=== PATIENT | female | born 1945 | race Hispanic/Latino ===

== ENCOUNTER → 2019-11-28 | Outpatient (CLI) | payer MEDICARE | END | disposition home or self-care (01) | LOC: RAH 11:17 | PROVIDERS: ATTEND Family Medicine | DX: Z12.31 Encounter for screening mammogram for malignant neoplasm of breast (principal) | CPT/HCPCS: 77067 ==

== ENCOUNTER → 2024-11-06 | Outpatient (CLI) | payer MEDICARE ==
--- NOTE | 2024-11-06 14:25 | HMCIMG ---
DEXA BONE DENSITY SURVEY HISTORY: Menopause COMPARISON: None FINDINGS: Bone densitometry study was performed. Bone mineral density of the lumbar spine is 0.734 gram per centimeter square which corresponds to a T score of -2.8 and a Z score of -0.1. Bone mineral density of the left hip is 0.623 grams per centimeter square which corresponds to a T score of -2.5 and a Z score of -0.4. IMPRESSION: 1. 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
--- NOTE | 2024-11-07 06:54 | HMCSR ---
APPROVED REPORT EXAM: Two-dimensional and M-mode echocardiogram with Doppler and color Doppler. INDICATION ICD: Cardiac murmur, unspecified R01.1 2D Dimensions RVDd3.1 cmLVEF(%)85.5 (>50%)LVED Vol(simp.)67.3 mL IVSd0.8 (0.7-1.1cm)FS(%)55 %LVES Vol(simp.)22.2 mL LVDd4.4 (3.8-5.6cm)LA (2D)4.1 (1.6-4.0cm)LVEF(%, simp.)67 % PWd0.9 (0.7-1.1cm)Ao Root(2D)2.4 (2.0-3.7cm)LA ESV INDEX (4CH)31.20 mL/m2 IVSs1.4 cmLVOT diam1.7 (1.8-2.4cm)LA ESV INDEX (2CH)28.40 mL/m2 LVDs2.0 (2.5-4.0cm)LA ESV INDEX (BP)30.60 mL/m2 PWs1.5 cm M-Mode Dimensions LA (MM)3.8 (1.6-4.0cm) Ao Root(MM)2.3 (2.0-3.7cm) Aortic Valve AoV VTI0.4 mAo Mean GR8.0 mmHgLVOT VTI0.26 m ALAINA (VMAX)1.6 cm2Al P1/2T346 msAVA (VTI) 1.6 cm2 Mitral Valve MR Max PG56 mmHgP 1/2 T86 ms MVA (PHT)2.6 cm2 TDI Medial E' Peak V5.80 cm/sLateral E' Peak V8.20 cm/s Tricuspid Valve TR Vmax2.6 m/s TR Peak GR26.6 mmHg Left Ventricle Left ventricular cavity is small. There is normal LV segmental wall motion. There is normal left vent ricular wall thickness. LVEF is 65-70%. The left ventricular diastolic function is normal. Right Ventricle The right ventricle is normal size. The right ventricular systolic function is normal. Atria The left atrium size is normal. The right atrium size is normal. Aortic Valve The aortic valve is mildly thickened but opens well. Trace to mild aortic regurgitation. There is no aortic valvular stenosis. Mitral Valve The mitral valve is normal in structure and function. Mitral regurgitation is trace. There is no mitr al valve stenosis. Tricuspid Valve The tricuspid valve is normal in structure and function. Mild to moderate tricuspid regurgitation. Pulmonic Valve The pulmonary valve is normal in structure and function. There is no pulmonic valvular regurgitation. Great Vessels The aortic root is normal in size. The IVC is normal in size and collapses >50% with inspiration. Pericardium No pericardial effusion. Conclusion LVEF is 65-70%. There is normal LV segmental wall motion. The aortic valve is mildly thickened but opens well. Trace to mild aortic regurgitation. Mild to moderate tricuspid regurgitation. The aortic root is normal in size. No pericardial effusion.
== END | disposition home or self-care (01) ==
LOC: RAH 12:59
PROVIDERS: ATTEND Family Medicine
DX: I08.2 Rheumatic disorders of both aortic and tricuspid valves (principal); R01.1 Cardiac murmur, unspecified; M81.0 Age-related osteoporosis without current pathological fracture; Z78.0 Asymptomatic menopausal state
CPT/HCPCS: 77080; 93306

== ENCOUNTER 2024-11-20 10:20 | Emergency (ER) | payer MEDICARE ==
[~2024-11-20] VITALS: Ht 154.9 cm; Wt 53.5 kg
[2024-11-20 10:21] VITALS: TEMP 98.4
--- NOTE | 2024-11-20 10:24 | ERN ---
ED Note History of Present Illness Stated Complaint: CHEST TIGHTNESS Chief Complaint: Chest Pain Time Seen by MD: 10:21 Dictation: PATIENT IS AN 79-YEAR-OLD FEMALE HERE WITH HER SON WITH COMPLAINTS OF HAVING CHEST TIGHTNESS ONSET THIS MORNING APPROXIMATE 2 HOURS PRIOR TO ARRIVAL. SHE STATES SHE WAS JUST GETTING DRESSED FOR THE MORNING, NO SOB NO ARM PAIN NO BACK PAIN NO JAW PAIN. SON STATES SHE HAD JUST HAD A TREADMILL TEST BY DR. MCKEON TWO WEEKS AGO AND SHE PASSED IT. NO HISTORY OF CAD HYPERTENSION DIABETES. NO HISTORY OF CORONARY ARTERY DISEASE Allergies: Coded Allergies: No Known Drug Allergies (Unverified Allergy, Unknown, 11/20/24) Past Medical History PSYCH History: no pertinent psych hx History: Not Applicable RN Note Reviewed/Agreed w/PFSH: Yes Review of System Dictation CONSTITUTIONAL: NEGATIVE EXCEPT FOR HPI HEAD/FACE: NEGATIVE EXCEPT FOR HPI EENT: NEGATIVE EXCEPT FOR HPI RESPIRATORY: NEGATIVE EXCEPT FOR HPI CHEST TIGHTNESS GASTROINTESTINAL/ABDOMINAL: NEGATIVE EXCEPT FOR HPI GENITOURINARY: NEGATIVE EXCEPT FOR HPI MUSCULOSKELETAL: NEGATIVE EXCEPT FOR HPI INTEGUMENTARY: NEGATIVE EXCEPT FOR HPI NEUROLOGICAL/PSYCH: NEGATIVE EXCEPT FOR HPI HEMATOLOGIC/LYMPHATIC: NEGATIVE EXCEPT FOR HPI ALL SYSTEMS NEGATIVE, EXCEPT NOTED ABOVE. 13 POINT REVIEW OF SYSTEMS ASSESSED AND ALL NEGATIVE EXCEPT FOR ABOVE. Initial Vital Sign VS Vital Signs Date Time Temp Pulse Resp B/P (MAP) Pulse Ox O2 Delivery O2 Flow Rate FiO2 11/20/24 10:21 98.4 65 18 110/53 99 Room Air 11/20/24 11:28 0 21 Physical Exam Dictation VITAL SIGNS REVIEWED GENERAL APPEARANCE: ALERT, ORIENTED X 3, NO ACUTE DISTRESS, WELL DEVELOPED, NOURISHED. HEAD AND FACE: NON-TRAUMATIC. EYES: PERRL, PINK CONJUNCTIVAS, EYELID NO TRAUMA, ANTERIOR CHAMBER WITH ARCUS SENILIS. EARS: PINNAS INTACT AND NO SIGNS OF TRAUMA OR ERYTHEMA EAR CANALS CLEAR AND NO DISCHARGE TM NO ERYTHEMA NOSE: NO DISCHARGE, NO BLEEDING. OROPHARYNX: MOUTH NORMAL, TONGUE PINK, PHARYNX CLEAR,NO ERYTHEMA, TONSILS NO EXUDATES, NO ABSCESSES NOTED, MUCOUS MEMBRANE MOIST NECK: SUPPLE, NON-TENDER, NO THYROMEGALY, NO MASSES, NO JVD, NO BRUITS BREAST:DEFERRED CHEST:NO TENDERNESS, NO CREPITUS, NO PARADOXICAL MOVEMENT, NO RETRACTIONS LUNGS:CLEAR, WELL-VENTILATED, SYMMETRIC, NO RALES, NO WHEEZING, NO RHONCHI, NO STRIDOR, GOOD BREATH SOUNDS BILATERALLY HEART: REGULAR RATE, REGULAR RHYTHM, NO MURMUR, NO GALLOPS VASCULAR: NO PERIPHERAL EDEMA, ABDOMEN: SOFT, POSITIVE BOWEL SOUNDS, NONDISTENDED, NO GUARDING, NONTENDER, NO REBOUND, NO MASSES NO HEPATOMEGALY, NO SPLENOMEGALY, NO MORALES'S SIGN, NO HERNIAS. RECTAL: DEFERRED GENITAL: DEFERRED NEUROLOGICAL: NORMAL SPEECH, MOTOR FUNCTION INTACT, SENSORY FUNCTION INTACT MUSCULOSKELETAL: NECK NONTENDER, FULL RANGE OF MOTION, BACK NONTENDER, FULL RANGE OF MOTION, EXTREMITIES: NONTENDER, FULL RANGE OF MOTION SKIN: COLOR PINK, DRY, NO TURGOR, NO RASH, NO LACERATIONS, NO ABRASIONS, NO CONTUSIONS. LYMPHATIC: DEFERRED Results (Laboratory/Radiology) Laboratory/Radiology Laboratory Tests Test 11/20/24 10:36 11/20/24 13:30 White Blood Count 7.3 K/uL (4.8-10.8) Red Blood Count 4.13 MIL/uL (4.00-5.50) Hemoglobin 12.7 g/dL (12.0-16.0) Hematocrit 39.7 % (36-48) Mean Corpuscular Volume 96.1 fL (79-99) Mean Corpuscular Hemoglobin 30.8 pg (27.0-33.0) Mean Corpuscular Hemoglobin Concent 32.0 g/dL (32.0-36.0) Red Cell Distribution Width 13.4 % (11.0-15.5) Platelet Count 325 K/uL (130-400) Mean Platelet Volume 9.7 fL (7.5-10.5) Immature Granulocyte % (Auto) 0.4 % (0-1) Neutrophils (%) (Auto) 74.8 % (40.0-77.0) Lymphocytes (%) (Auto) 16.2 % (21.0-51.0) L Monocytes (%) (Auto) 7.3 % (3.0-13.0) Eosinophils (%) (Auto) 0.7 % (0.0-8.0) Basophils (%) (Auto) 0.6 % (0.0-5.0) Neutrophils # (Auto) 5.4 K/uL (1.8-7.7) Lymphocytes # (Auto) 1.2 K/uL (1.0-4.8) Monocytes # (Auto) 0.5 K/uL (0.1-1.0) Eosinophils # (Auto) 0.05 K/uL (0.00-0.70) Basophils # (Auto) 0.04 K/uL (0.00-0.20) Absolute Immature Granulocyte (auto 0.03 K/uL (0-1) Nucleated Red Blood Cells 0.0 % (0.0-0.19) Sodium Level 140 mmol/L (136-145) Potassium Level 4.6 mmol/L (3.5-5.1) Chloride Level 105 mmol/L (101-111) Carbon Dioxide Level 28 mmol/L (21-32) Blood Urea Nitrogen 12 mg/dL (7-18) Creatinine 0.6 mg/dL (0.5-1.0) Glomerular Filtration Rate Calc 90 mL/min (>90) Random Glucose 121 mg/dL (70-105) H Total Calcium 9.4 mg/dL (8.5-10.1) Magnesium Level 2.20 mg/dL (1.80-2.40) Troponin I High Sensitivity 5 ng/L (4-50) 8 ng/L (4-50) B-Type Natriuretic Peptide 16 pg/mL (0-100) CHEST 1VW HISTORY: Chest pain COMPARISON: None FINDINGS: A frontal projection of the chest was obtained. No acute pulmonary infiltrates is seen. The heart is borderline enlarged. Tortuosity of aorta is seen. Aortic calcifications are seen. IMPRESSION: 1. No acute pulmonary infiltrate is seen. Labs Reviewed?: Yes EKG Comment: EKG SINUS BRADYCARDIA/HEART RATE 59/AXIS NORMAL/NO ECTOPY. NO ACUTE CHANGE 1320/2ND EKG EKG SINUS RHYTHM/HEART RATE 63/AXIS NORMAL/NO NO CHANGES FROM INITIAL EKG SECOND HEART SCORE FOR, HIGH SENSITIVITY TROPONIN EIGHT NO ACUTE CHANGE ED Course ED Course Orders Procedure Category Date Status Time Cbc With Differential LAB 11/20/24 Complete 10:21 B-Type Natriuretic LAB 11/20/24 Complete Peptide 10:21 Chest 1vw RAD 11/20/24 Resulted 10:21 12 Lead Ekg Tracing- EKG 11/20/24 Resulted Technical 10:21 Magnesium LAB 11/20/24 Complete 10:21 Troponin I High LAB 11/20/24 Complete Sensitivity 10:21 Aspirin 325mg Tab PHA 11/20/24 Complete (Aspirin 325mg Tab) 10:30 Basic Metabolic Panel LAB 11/20/24 Complete 10:21 12 Lead Ekg Tracing- EKG 11/20/24 Complete Technical 13:08 Troponin I High LAB 11/20/24 Complete Sensitivity 13:08 Current Medications Medications (Trade) Dose Ordered Sig/Kelvin Route PRN Reason Start Time Stop Time Status Last Admin Dose Admin Aspirin (Aspirin 325mg Tab) 325 mg ONCE ONCE PO 11/20/24 10:30 11/20/24 10:31 DC 11/20/24 10:38 Vital Signs Date Time Temp Pulse Resp B/P (MAP) Pulse Ox O2 Delivery O2 Flow Rate FiO2 11/20/24 11:28 52 22 136/65 100 Room Air* 0 21 11/20/24 10:21 98.4 65 18 110/53 99 Room Air 1305, INITIAL WORKUP FOR CHEST PAIN IS NEGATIVE WE WILL REPEAT EKG AND TROPONIN NOW IF NEGATIVE WE WILL DISCHARGED HOME TO FOLLOW UP WITH HER PRIMARY CARE DOCTOR. HEART Score Response (Comments) Value History: Low suspicion (0) 0 Age: > 65yrs (+2) 2 Risk Factors: 1-2 risk factors (+1) 1 Initial Troponin: Normal limit (0) 0 Total 3 Medical Decision Making MDM MDM: DIFFERENTIAL DIAGNOSIS: ACS/AMI/PNEUMONIA/BRONCHITIS/ATYPICAL CHEST PAIN/ELECTROLYTE IMBALANCE/DEHYDRATION/COSTOCHONDRITIS RATIONALE: TESTS CONSIDERED AND ORDERED SECONDARY TO SHARED DECISION MAKING INCLUDE: EKG/LABS/RADIOLOGY PREVIOUS OUTSIDE RECORDS REVIEWED: OLD ER VISITS. RISK OF COMPLICATION AND/OR MORBIDITY OR MORTALITY OF PATIENT MANAGEMENT: NONE MEDICATIONS-PER MEDICATION RECONCILIATION NEED FOR HOSPITALIZATION: PATIENT DOES NOT MEET CRITERIA FOR HOSPITALIZATION. NO NEGATIVE EKG AND TROPONINS X2 NEED FOR EMERGENCY MAJOR/MINOR SURGERY: NO THERE ARE NO SOCIAL CONCERNS WITH THIS PATIENT. PRESCRIPTION DRUG MANAGEMENT NONE SEE HER PRIMARY CARE DOCTOR PRESCRIPTIONS WILL INCLUDE SYMPTOMATIC CARE PATIENT'S PRIOR EXTERNAL MEDICAL RECORDS FROM OTHER ER VISITS WERE REVIEWED BY ME INDICATED. PRIOR TESTING AND RESULTS FROM PREVIOUS VISITS WERE REVIEWED. PRIOR TESTS WERE TAKEN INTO ACCOUNT WITH MEDICAL DECISION MAKING AND RESOURCE UTILIZATION, INDEPENDENT HISTORIAN/HISTORIANS WERE USED TO OBTAIN COMPLETE MEDICAL HISTORY. I INDEPENDENTLY INTERPRETED THE TEST THAT WERE PERFORMED, RESULTS WERE REVIEWED BY ME AND CONSIDERED FINDINGS ON RADIOLOGY IF ORDERED. MEDICAL MANAGEMENT AND EXAMINATION INTERPRETATION DISCUSSIONS WERE HAD BY ME WITH OTHER QUALIFIED HEALTHCARE PROFESSIONALS INDICATED FOR THE PATIENT'S CARE. DX & DISP Disposition: Discharge Departure Impression: Primary Impression: Atypical chest pain Additional Impression: Hyperglycemia Condition: Stable Additional Instructions: FOLLOW-UP WITH PRIMARY CARE PROVIDER IN 1 TO 2 DAYS. TAKE MEDICATIONS DIRECTED HERE IN THE EMERGENCY ROOM. OKAY TO CONTINUE HOME MEDICATIONS UNLESS OTHERWISE DISCUSSED DURING YOUR VISIT IN THE EMERGENCY ROOM TODAY. RETURN TO YOUR NEAREST EMERGENCY ROOM IF SYMPTOMS WORSEN OR IF THERE IS NO IMPROVEMENT. CALL 911 IF YOU NEED IMMEDIATE ASSISTANCE. TAKE TYLENOL OR MOTRIN [id number] NEEDED AND IF NO CONTRAINDICATIONS ARE PRESENT. INCREASE ORAL HYDRATION. A WOUND CULTURE OR URINE CULTURE WAS ORDERED HERE IN THE EMERGENCY ROOM DEPARTMENT PLEASE FOLLOW-UP WITH PRIMARY CARE PROVIDER AND ADVISE THEM TO GET REPEAT PORTS FROM OUR FACILITY. IF YOU HAD ANY JEANINE WRAP/SPLINTS THAT WERE APPLIED HERE, PLEASE DO NOT REMOVE THEM UNTIL YOU SEE YOUR PRIMARY CARE OR SPECIALTY. SEE YOUR PRIMARY CARE DOCTOR FOR FOLLOW UP Referrals: ALIN MCKEON MD (PCP) Time of Disposition: 13:57 I have reviewed the case, and I agree with, Diagnosis and Plan ELIO CONTRERAS NP Nov 20, 2024 10:24
--- NOTE | 2024-11-20 10:32 | NUR ---
PT JUST NOW PLACED IN MY ED BED 11
[2024-11-20] MEDS: ASPIRIN 325MG TAB PO ONE (10:38)
[2024-11-20 10:45] LABS: BASOPHILS # (AUTO) 0.04 K/uL (0.00-0.20); BASOPHILS % (AUTO) 0.6 % (0.0-5.0); EOSINOPHILS # (AUTO) 0.05 K/uL (0.00-0.70); EOSINOPHILS % (AUTO) 0.7 % (0.0-8.0); HEMATOCRIT 39.7 % (36-48); IMMATURE GRANULOCYTE ABSOLUTE 0.03 K/uL (0-1); LYMPHOCYTES # (AUTO) 1.2 K/uL (1.0-4.8); LYMPHOCYTES % (AUTO) 16.2 % (21.0-51.0); MEAN CORPUSCULAR HEMOGLOBIN 30.8 pg (27.0-33.0); MEAN CORPUSCULAR VOLUME 96.1 fL (79-99); MONOCYTES # (AUTO) 0.5 K/uL (0.1-1.0); MONOCYTES % (AUTO) 7.3 % (3.0-13.0); NEUTROPHILS # (AUTO) 5.4 K/uL (1.8-7.7); NEUTROPHILS % (AUTO) 74.8 % (40.0-77.0); PLATELET COUNT (AUTO) 325 K/uL (130-400); RED BLOOD CELL COUNT(AUTO) 4.13 MIL/uL (4.00-5.50); RED CELL DISTRIBUTION WIDTH 13.4 % (11.0-15.5); WHITE BLOOD COUNT (AUTO) 7.3 K/uL (4.8-10.8)
[2024-11-20 10:55] LABS: CREATININE 0.6 mg/dL (0.5-1.0); MAGNESIUM 2.2 mg/dL (1.80-2.40); POTASSIUM 4.6 mmol/L (3.5-5.1)
--- NOTE | 2024-11-20 10:56 | EKG ---
[facility] Test Date: 2024-11-20 Test Time: 10:27:25 Pat Name: KENDAL HARO Department: ED Room: Gender: F Mogul Operator: [id number] : 1945 Requested By: ELIO CONTRERAS Order Number: [id number] Reading MD: Say Ahn Measurements Intervals [place] Rate: 59 P: 11 WV: 138 QRS: 18 QRSD: 79 T: 31 QT: 401 QTc: 397 Interpretive Statements Sinus rhythm No previous ECG available for comparison Electronically Signed On 11-20-2024 12:12:50 CUSTOMER SUCCESS DIRECTOR by Say Ahn Please click the below link to view image of tracing.
[2024-11-20 11:23] LABS: B-TYPE NATRIURETIC PEPTIDE 16 pg/mL (0-100)
--- NOTE | 2024-11-20 11:44 | HMCIMG ---
CHEST 1VW HISTORY: Chest pain COMPARISON: None FINDINGS: A frontal projection of the chest was obtained. No acute pulmonary infiltrates is seen. The heart is borderline enlarged. Tortuosity of aorta is seen. Aortic calcifications are seen. IMPRESSION: 1. No acute pulmonary infiltrate is seen.
[2024-11-20 13:00] VITALS: BP 138/60; PULSE 62; RESP 14; O2SAT 99
--- NOTE | 2024-11-20 13:22 | EKG ---
[facility] Test Date: 2024-11-20 Test Time: 13:21:04 Pat Name: KENDAL HARO Department: ED Room: Gender: F Wet Pan Mixer: [id number] : 1945 Requested By: ELIO CONTRERAS Order Number: [id number] Reading MD: Say Ahn Measurements Intervals [place] Rate: 56 P: 16 [place]: 133 QRS: 15 QRSD: 79 T: 25 QT: 442 QTc: 427 Interpretive Statements Sinus rhythm Compared to ECG 11/20/2024 10:27:25 No significant changes Electronically Signed On 11-20-2024 16:21:07 CAR SALES ASSOCIATE by Say Ahn Please click the below link to view image of tracing.
--- NOTE | 2024-11-20 13:49 | NUR ---
PENDING 2ND TROP FOR DISPOSTION OF PT
== END 2024-11-20 14:56 | disposition home or self-care (01) ==
LOC: EDH 10:20
DX: R07.89 Other chest pain (principal); R73.9 Hyperglycemia, unspecified
CPT/HCPCS: 36415; 71045; 80048; 83735; 83880; 84484; 85025; 93005; 99285

== ENCOUNTER 2025-10-18 10:03 | Emergency (ER) | payer MEDICARE, MEDICAID ==
[~2025-10-18] VITALS: Ht 152.4 cm; Wt 53.1 kg
[~2025-10-18 10:03] MED LIST: AMLO2.5T2 PO; LIDO1ADH71 TP
[2025-10-18 11:42] LABS: IMMATURE GRANULOCYTE ABSOLUTE 0.03 K/uL (0-1); NUCLEATED RED BLOOD CELLS 0.0 % (0.0-0.19); PLATELET COUNT (AUTO) 249 K/uL (130-400); RED BLOOD CELL COUNT(AUTO) 4.47 MIL/uL (4.00-5.50); RED CELL DISTRIBUTION WIDTH 13.2 % (11.0-15.5); WHITE BLOOD COUNT (AUTO) 8.3 K/uL (4.8-10.8)
[2025-10-18 11:52] LABS: APPEARANCE,URINE CLEAR (CLEAR); GLUCOSE, URINE (UA) NEGATIVE (NEGATIVE); LEUKOCYTE ESTERASE ,URINE NEGATIVE Leu/uL (NEGATIVE); NITRATE,URINE NEGATIVE (NEGATIVE); OCCULT BLOOD,URINE NEGATIVE (NEGATIVE)
[2025-10-18 11:52] LABS: CREATININE 0.9 mg/dL (0.5-1.0); GLOMERULAR FILTR. RATE CALC 64.0 mL/min (>90); GLUCOSE,RANDOM 107.0 mg/dL (70-105); SODIUM SERUM 137.0 mmol/L (136-145); UREA NITROGEN, BLOOD 20.0 mg/dL (7-18)
[2025-10-18 11:59] LABS: ADD UA MICROSCOPIC YES
[2025-10-18 12:00] LABS: SQUAMOUS EPITHELIAL CELL,UR RARE /HPF (0-2)
[2025-10-18 12:15] LABS: BAND NEUTROPHILS % (MANUAL) 8 % (0-2); BASOPHILS % (MANUAL) 2 % (0-2); EOSINOPHILS % (MANUAL) 1 % (1-6); LYMPHOCYTES % (MANUAL) 2 % (22-44); MAN.DIFF COMMENT-IMPRESSION MANUAL DIFFERENTIAL; MONOCYTES % (MANUAL) 6 % (2-9); PLATELET MORPHOLOGY COMMENT ADEQUATE; SEGMENTED NEUTROPHILS % 81 % (40-70); WBC MORPHOLOGY CONSISTENT W/DIFF
--- NOTE | 2025-10-18 12:24 | HMCIMG ---
EXAM: CT Head Without IV contrast. CLINICAL HISTORY: fall TECHNIQUE: Axial computed tomography images of the head/brain without intravenous contrast. COMPARISON: None provided. FINDINGS: BRAIN: No evidence of acute hemorrhage. No mass lesion. No CT evidence for acute territorial infarct. No midline shift or extra-axial collections. VENTRICLES: No hydrocephalus. ORBITS: The orbits are unremarkable. SINUSES AND MASTOIDS: The paranasal sinuses and mastoid air cells are clear. BONES: No fracture. SOFT TISSUES: Unremarkable. IMPRESSION: No acute intracranial abnormality. /[place]
--- NOTE | 2025-10-18 12:35 | HMCIMG ---
EXAM CR CHEST, 1 VIEW CLINICAL HISTORY Fall. COMPARISON CR CHEST 1 VIEW 04/13/2025 11:28 EDT. FINDINGS LUNGS Hyperexpansion of the lungs with coarse bronchovascular markings compatible with underlying chronic obstructive pulmonary or emphysematous change. No focal consolidation, pulmonary edema, or other acute infiltrate is identified. PLEURAL SPACES No pleural effusion or pneumothorax is seen. MEDIASTINUM The cardiomediastinal silhouette is within normal limits. BONES No acute osseous abnormality is identified. IMPRESSION * Hyperexpanded lungs with coarse bronchovascular markings, consistent with chronic obstructive pulmonary or emphysematous changes. * No acute cardiopulmonary abnormality identified. /[place]
--- NOTE | 2025-10-18 12:36 | HMCIMG ---
EXAM CR RIGHT FOREARM, 2 VIEW CLINICAL HISTORY Fall. TECHNIQUE Two radiographic views of the right forearm. COMPARISON None. FINDINGS BONES Impacted fracture of the distal radius involving the distal shaft is present. There is generalized osteopenia of the radius and ulna. No aggressive appearing osseous lesion is identified. JOINTS No dislocation. The visualized joint spaces are preserved. SOFT TISSUES Soft tissue swelling and contusion are noted surrounding the distal forearm. No radiopaque foreign body is seen. IMPRESSION * Impacted distal shaft fracture of the radius. * Osteopenia of the radius and ulna. * Soft tissue contusion of the distal forearm. /[place]
--- NOTE | 2025-10-18 13:09 | ERN ---
ED Note History of Present Illness Stated Complaint: WRIST PAIN Chief Complaint: Wrist Pain/Injury Time Seen by MD: 10:05 Dictation: 80-year-old female presenting to the emergency department for right wrist pain after fall yesterday, patient has a history of dementia and at bedside with family, denies any other injuries no headache chest pain or abdominal pain. Allergies: Coded Allergies: No Known Drug Allergies (Unverified Allergy, Unknown, 11/20/24) Home Meds Active Scripts Lidocaine (Lidocaine Pain Relief) 4 % Adh..patch, 1 EACH TP DAILY for 7 Days, #7 ADH.PATCH 2 Refills Prov:OBDULIO NGO MD 04/15/25 Amlodipine Besylate (Norvasc 2.5MG Tab) 2.5 Mg Tablet, 2.5 MG PO DAILY for 30 Days, #30 TAB 1 Refill Prov:OBDULIO NGO MD 04/15/25 Past Medical History Past Medical History: Anxiety, Dementia Surgical History: Appendectomy Surgical History Other: GODFREY KNEE REPAIR History: Not Applicable Review of System Dictation Constitutional: Negative for fever,chills, and weight loss Eyes: Negative for injury, pain,redness, and discharge ENT: Negative for injury,pain or swelling Cardiovascular: Negative for chest pain, palpitations, and edema Respiratory: Negative for shortness of breath, cough, and wheezing, Abdomen/GI: Negative for abdominal pain, nausea, vomiting, diarrhea, and constipation Back: Negative for injury and pain : Negative for injury, bleeding and discharge MS/Extremity: Per HPI Skin: Negative for rash, and discoloration Neuro: N per HPI Initial Vital Sign VS Vital Signs Date Time Temp Pulse Resp B/P (MAP) Pulse Ox O2 Delivery O2 Flow Rate FiO2 10/18/25 10:04 98.2 78 18 124/61 94 Room Air 0 10/18/25 11:33 21 Physical Exam Dictation General: awake, alert, NAD Head/Face: Normocephalic, atraumatic Eyes: PERRL, EOMI, vision at baseline ENT: oral cavity clear, TMs clear, no signs of infection Neck: Trachea midline, supple, no nuchal rigidity Cardiovascular: RRR, normal S1/S2, No MRGs, no JVD Respiratory: CTAB, no respiratory distress, No rales or wheezes Abdomen: Soft, non-tender, non-distended, normal bowel sounds, no guarding or rebound. Skin: Warm, dry, normal turgor, no rash MS/Extremity: Pulses equal, no cyanosis, neurovascular intact, FROM, contusion to right wrist area no deformities closed neurovascularly intact distally Neuro: COAx4, GCS 15, strength 5/5, CN 2-12 intact, normal cerebellar exam, normal gait, Psych: Normal behavior, mood, and affect normal Results (Laboratory/Radiology) Laboratory/Radiology Laboratory Tests Test 10/18/25 11:14 10/18/25 11:18 White Blood Count 8.3 K/uL (4.8-10.8) Red Blood Count 4.47 MIL/uL (4.00-5.50) Hemoglobin 13.2 g/dL (12.0-16.0) Hematocrit 42.4 % (36-48) Mean Corpuscular Volume 94.9 fL (79-99) Mean Corpuscular Hemoglobin 29.5 pg (27.0-33.0) Mean Corpuscular Hemoglobin Concent 31.1 g/dL (32.0-36.0) L Red Cell Distribution Width 13.2 % (11.0-15.5) Platelet Count 249 K/uL (130-400) Mean Platelet Volume 10.0 fL (7.5-10.5) Immature Granulocyte % (Auto) 0.4 % (0-1) Neutrophils (%) (Auto) 82.2 % (40.0-77.0) H Lymphocytes (%) (Auto) 8.2 % (21.0-51.0) L Monocytes (%) (Auto) 7.4 % (3.0-13.0) Eosinophils (%) (Auto) 1.1 % (0.0-8.0) Basophils (%) (Auto) 0.7 % (0.0-5.0) Neutrophils # (Auto) 6.8 K/uL (1.8-7.7) Lymphocytes # (Auto) 0.7 K/uL (1.0-4.8) L Monocytes # (Auto) 0.6 K/uL (0.1-1.0) Eosinophils # (Auto) 0.09 K/uL (0.00-0.70) Basophils # (Auto) 0.06 K/uL (0.00-0.20) Absolute Immature Granulocyte (auto 0.03 K/uL (0-1) Segmented Neutrophils % 81 % (40-70) H Band Neutrophils % 8 % (0-2) H Lymphocytes % (Manual) 2 % (22-44) L Monocytes % (Manual) 6 % (2-9) Eosinophils % (Manual) 1 % (1-6) Basophils % (Manual) 2 % (0-2) Nucleated Red Blood Cells 0.0 % (0.0-0.19) Differential Comment MANUAL DIFFERENTIAL White Cell Morphology Comment CONSISTENT W/DIFF Platelet Morphology Comment ADEQUATE Red Blood Cell Morphology ANISO 1+ Sodium Level 137 mmol/L (136-145) Potassium Level 4.5 mmol/L (3.5-5.1) Chloride Level 101 mmol/L (101-111) Carbon Dioxide Level 26 mmol/L (21-32) Blood Urea Nitrogen 20 mg/dL (7-18) H Creatinine 0.9 mg/dL (0.5-1.0) Glomerular Filtration Rate Calc 64 mL/min (>90) Random Glucose 107 mg/dL (70-105) H Total Calcium 8.9 mg/dL (8.5-10.1) Urine Color LIGHT-YELLOW (YELLOW) Urine Appearance CLEAR (CLEAR) Urine pH 6.0 (5.0-8.0) Urine Specific [place] 1.019 (1.001-1.031) Urine Protein NEGATIVE mg/dL (NEGATIVE) Urine Glucose (UA) NEGATIVE mg/dL (NEGATIVE) Urine Ketones NEGATIVE mg/dL (NEGATIVE) Urine Occult Blood NEGATIVE (NEGATIVE) Urine Nitrate NEGATIVE (NEGATIVE) Urine Bilirubin NEGATIVE mg/dL (NEGATIVE) Urine Urobilinogen 0.2 mg/dL (0.2-1.0) Urine Leukocyte Esterase NEGATIVE [place]/uL Urine RBC 0-1 /HPF (0-1) Urine WBC 0-1 /HPF (0-1) Urine Squamous Epithelial Cells RARE /HPF (0-2) Urine Bacteria None /HPF (None Seen) Labs Reviewed?: Yes EKG: (+) NSR, (+) rhythm, (+) nonspecific ST T wave chg, (+) nonspecific ST T wave chg ED Course ED Course Orders Procedure Category Date Status Time Forearm 2vws Rt RAD 10/18/25 Resulted 10: Basic Metabolic Panel LAB 10/18/25 Complete Cbc With Differential LAB 10/18/25 Complete 10:31 Urinalysis Profile LAB 10/18/25 Complete 10:31 Chest 1vw RAD 10/18/25 Resulted 10:31 Ct Head/Brain W/O CT 10/18/25 Resulted Contrast 10:31 Manual Differential LAB 10/18/25 Complete 11:14 *Nursing CPOE 10/18/25 Transmitted Communication: 13:02 Vital Signs Date Time Temp Pulse Resp B/P (MAP) Pulse Ox O2 Delivery O2 Flow Rate FiO2 10/18/25 11:33 97.9 62 16 113/61 97 Room Air* 0 21 10/18/25 10:04 98.2 78 18 124/61 94 Room Air 0 Medical Decision Making MDM MDM: Differential diagnosis: Rationale: Tests considered and ordered secondary to shared decision making include: Previous outside records reviewed: Old ER visits. Risk of complication and/or morbidity or mortality of patient management: None Medications-Per medication reconciliation Need for hospitalization: Patient does not meet criteria for hospitalization. Need for emergency major/minor surgery: No There are no social concerns with this patient. Prescription drug management Prescriptions will include symptomatic care Patient's prior external medical records from other ER visits were reviewed by me as indicated. Prior testing and results from previous visits were reviewed. Prior tests were taken into account with medical decision making and resource utilization, independent historian/historians were used to obtain complete medical history. I independently interpreted the test that were performed, results were reviewed by me and considered findings on radiology if ordered. Medical management and examination interpretation discussions were had by me with other qualified healthcare professionals as indicated for the patient's care. 80-year-old female with ground level fall negative workup CT of the head and labs and cardiac workup were all negative x-ray just showed nondisplaced impact radius fracture placed in splint neurovascularly intact distally and stable for discharge. DX & DISP Disposition: Discharge Departure Impression: Primary Impression: Right radial head fracture Additional Impression: Fall Condition: Stable Referrals: ALIN MCKEON MD (PCP) DENISA GALLO DO Time of Disposition: 13:08 BERTHA PETERSON MD Oct 18, 2025 13:09
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
--- NOTE | 2025-10-18 14:23 | NUR ---
CONTACTED [facility]PS AT [address] PETERSON INSTRUCTION. REPORTED INFORMATION AND FINDINGS / [facility] REP JIGNESH #[id number] REF# [id number]
[2025-10-18 14:39] VITALS: BP 129/56; PULSE 63; RESP 17; TEMP 98.7; O2SAT 97
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
--- NOTE | 2025-10-18 14:43 | NUR ---
SUGAR TONG SPLINT PLACED TO RT WRIST AT BEDSIDE BY ELIA GAMEZ.
--- NOTE | 2025-10-18 14:51 | NUR ---
PT STABLE NO DISTRESS, VITALS WNL NO C/O PAIN NOW, PT SPLINT INTACT, PT AND NEPHEW GIVING INSTRUTIONS FOR HOME, NO IV AT THIS TIME. PT TAKE OUT IN W/C DRIVEN HOME BY NEPHEW.
== END 2025-10-18 15:12 | disposition home or self-care (01) ==
LOC: EDH 10:03
DX: S52.391A Other fracture of shaft of radius, right arm, initial encounter for closed fracture (principal); F03.90 Unspecified dementia, unspecified severity, without behavioral disturbance, psychotic disturbance, mood disturbance, and anxiety; Z79.899 Other long term (current) drug therapy; Z90.49 Acquired absence of other specified parts of digestive tract; W18.39XA Other fall on same level, initial encounter; Y93.89 Activity, other specified; Y92.89 Other specified places as the place of occurrence of the external cause; Y99.8 Other external cause status
CPT/HCPCS: 29125; 36415; 70450; 71045; 73090; 80048; 81001; 85025; 99284